=== PATIENT | male | born 1960 | race Hispanic/Latino ===

== ENCOUNTER 2017-08-21 16:08 | Inpatient (IN) | payer MEDICAID ==
[~2017-08-21] VITALS: Ht 177.8 cm; Wt 106.6 kg
[~2017-08-21 16:08] MED LIST: ACET325T51 PO; AEC81 PO; ASCO500T10 PO; ATOR20TA65 PO; AUD IH; BUDE10.2 IH; CYAN100099 PO; DIPH25 PO; DULO30CA51 PO; ETOMIDATE 2 MG/ML 10 ML VIAL IVP ONE; FOLI1TAB15 PO; FURO20TA4 PO; INSU100V12 SQ; LACT10SO9 PO; LINA5TAB PO; MULT-685 PO; OMEP40CA37 PO; ONDA4TAB4 PO; OSEL75 PO; POTA-9 PO; PREG50 PO; ROCURONIUM BROMIDE 10MG/1ML 5ML VL IV ONE; SPIR25TA PO; SUCCINYLCHOLINE CHLORIDE 20 MG/ML 10 ML VIAL IVP ONE; TYL3 PO; ZINC50TA64 PO; [UNRECOGNIZED DRUG - CODE] TP
[2017-08-21 16:32] LABS: EOSINOPHILS % (AUTO) 1.4 % (0.0-8.0); HEMATOCRIT 26.9 % (42-54); LYMPHOCYTES % (AUTO) 13.5 % (21.0-51.0); MONOCYTES % (AUTO) 10.8 % (3.0-13.0); NEUTROPHILS % (AUTO) 73.3 % (40.0-77.0); PLATELET COUNT (AUTO) 98 K/uL (130-400); RED BLOOD CELL COUNT(AUTO) 2.86 MIL/uL (4.50-6.20); RED CELL DISTRIBUTION WIDTH 16.8 % (11.0-15.5); WHITE BLOOD COUNT (AUTO) 4.2 K/uL (4.8-10.8)
[2017-08-21 16:39] LABS: CREATININE 1.9 mg/dL (0.5-1.5); POTASSIUM 5.7 mmol/L (3.5-5.1)
[2017-08-21] MEDS ORDERED: CEFTRIAXONE SODIUM 2 GM VIAL ONE (16:51)
[2017-08-21] MEDS ORDERED: ALBUMIN (HUMAN) 25% 100 ML IV SCH (17:15)
[2017-08-21 17:16] LABS: ALBUMIN 1.4 g/dL (3.5-5.0); BILIRUBIN,DIRECT 0.6 mg/dL (0.0-0.3); BILIRUBIN,TOTAL 1.2 mg/dL (0.2-1.0); TOTAL PROTEIN, SERUM 7.7 g/dL (6.0-8.3)
[2017-08-21 17:23] LABS: APPEARANCE,URINE Clear (CLEAR); BILIRUBIN,URINE Negative (NEGATIVE); COLOR,URINE Yellow (YELLOW); GLUCOSE, URINE (UA) Negative (NEGATIVE); KETONES,URINE Negative (NEGATIVE); LEUKOCYTE ESTERASE ,URINE Trace (NEGATIVE); NITRATE,URINE Negative (NEGATIVE); OCCULT BLOOD,URINE Small (NEGATIVE); PROTEIN,URINE Negative (NEGATIVE); UROBILINOGEN,URINE 0.2 mg/dL (0.2-1.0)
[2017-08-21 17:29] LABS: INR 1.32 (0.85-1.15); PARTIAL THROMBOPLASTIN TIME 33.3 SEC (26.3-35.5); PROTHROMBIN TIME 13.8 SEC (9.6-11.6)
[2017-08-21 17:47] LABS: BACTERIA,URINE None Seen /HPF (None Seen); RBC,URINE 0-1 /HPF (0-1); WBC,URINE 0-1 /HPF (0-1)
[2017-08-21] MEDS ORDERED: LACTULOSE 20 GM/30 ML UDCUP ONE (18:26)
[2017-08-21 22:05] VITALS: BP 117/67
[2017-08-22] VITALS (7 sets, daily range): BP systolic 112–122; BP diastolic 58–75
[2017-08-22] MEDS ORDERED: ZINC220C6 PO (07:42)
[2017-08-22 08:07] LABS: ALBUMIN 1.6 g/dL (3.5-5.0); BILIRUBIN,TOTAL 1.2 mg/dL (0.2-1.0); CREATININE 1.6 mg/dL (0.5-1.5); POTASSIUM 5.1 mmol/L (3.5-5.1); TOTAL PROTEIN, SERUM 7.2 g/dL (6.0-8.3)
[2017-08-22] MEDS: LACTULOSE 20 GM/30 ML UDCUP PO SCH ×3 (10:14→21:14)
[2017-08-22] MEDS ORDERED: LACTULOSE 20 GM/30 ML UDCUP PO ONE (15:09)
[2017-08-23 04:23] VITALS: BP 107/67
[2017-08-23 08:00] VITALS: BP 107/65
[2017-08-23] MEDS: LACTULOSE 20 GM/30 ML UDCUP PO SCH ×3 (08:36→21:25)
[2017-08-23 11:43] VITALS: BP 121/74
[2017-08-23 16:00] VITALS: BP 122/66
[2017-08-23 19:30] VITALS: BP 113/69
[2017-08-23] MEDS ORDERED: ACETAMINOPHEN-CODEINE 300/30MG TAB PO PRN (23:30)
[2017-08-23] MEDS ORDERED: DIPHENHYDRAMINE HCL 25 MG CAPSULE PO PRN (23:30)
[2017-08-23 23:40] VITALS: BP 116/55
[2017-08-24] MEDS: LEVOFLOXACIN 500 MG/D5W 100 ML 100 ML IV SCH ×2 (00:45→22:51)
[2017-08-24 03:45] VITALS: BP 123/67
[2017-08-24 04:21] LABS: MEAN CORPUSCULAR HEMOGLOBIN 30.9 pg (27.0-33.0); MEAN CORPUSCULAR HGB CONC 33.3 g/dL (32.0-36.0); MEAN CORPUSCULAR VOLUME 92.7 fL (79-99); PLATELET COUNT (AUTO) 89 K/uL (130-400); RED BLOOD CELL COUNT(AUTO) 2.48 MIL/uL (4.50-6.20); RED CELL DISTRIBUTION WIDTH 17.4 % (11.0-15.5)
[2017-08-24 04:31] LABS: ALBUMIN 1.5 g/dL (3.5-5.0); BILIRUBIN,TOTAL 1.5 mg/dL (0.2-1.0); CREATININE 1.6 mg/dL (0.5-1.5); POTASSIUM 4.1 mmol/L (3.5-5.1)
[2017-08-24 04:33] LABS: B-TYPE NATRIURETIC PEPTIDE 285 pg/mL (0-100)
[2017-08-24 07:00] VITALS: BP 126/68
[2017-08-24] MEDS: PANTOPRAZOLE SODIUM 40 MG TABLET.DR PO SCH (07:30)
[2017-08-24] MEDS: MULTIVITAMIN WITH MINERALS TABLET PO SCH (07:53)
[2017-08-24] MEDS: DULOXETINE HCL 30 MG CAP PO SCH (07:54)
[2017-08-24] MEDS: FOLIC ACID 1 MG TABLET PO SCH (07:54)
[2017-08-24] MEDS: ZINC SULFATE 220 CAPSULE PO SCH (07:54)
[2017-08-24] MEDS: POTASSIUM CHLORIDE 10 MEQ/TAB.SA PO SCH (07:54)
[2017-08-24] MEDS: CYANOCOBALAMIN (VITAMIN B-12) 1,000 MCG TABLET PO SCH (07:54)
[2017-08-24] MEDS: SUB PER P&T FOR ASTHMA OR COPD RECOMMENDATION IH SCH (07:55)
[2017-08-24] MEDS: FUROSEMIDE 20 MG TABLET PO SCH ×2 (09:46→21:06)
[2017-08-24] MEDS: LACTULOSE 20 GM/30 ML UDCUP PO SCH ×3 (09:46→21:05)
[2017-08-24 11:08] VITALS: BP 127/72
[2017-08-24 15:00] VITALS: BP 122/71
[2017-08-24 19:00] VITALS: BP 101/64
[2017-08-24] MEDS: ATORVASTATIN CALCIUM 20 MG TABLET PO SCH (21:06)
[2017-08-24 23:51] VITALS: BP 109/62
[2017-08-25] VITALS (12 sets, daily range): BP systolic 88–114; BP diastolic 40–58
[2017-08-25] MEDS: ALBUTEROL SULFATE 0.083% 2.5 MG/3 ML INH IH PRN ×2 (04:51→13:39)
[2017-08-25 05:20] LABS: ALBUMIN 1.5 g/dL (3.5-5.0); BILIRUBIN,TOTAL 2.5 mg/dL (0.2-1.0); CREATININE 1.7 mg/dL (0.5-1.5); POTASSIUM 3.8 mmol/L (3.5-5.1); TOTAL PROTEIN, SERUM 7.1 g/dL (6.0-8.3)
[2017-08-25] MEDS ORDERED: TRYPSIN/BALSAM PERU/CASTOR OIL OINT 60GM TUBE TP SCH (09:00)
[2017-08-25] MEDS: SUB PER P&T FOR ASTHMA OR COPD RECOMMENDATION IH SCH (09:00)
[2017-08-25] MEDS ORDERED: NEOMY SULF/BACITRAC ZN/POLY OINT 30GM TUBE TP SCH (09:00)
[2017-08-25] MEDS: FOLIC ACID 1 MG TABLET PO SCH (10:06)
[2017-08-25] MEDS: CYANOCOBALAMIN (VITAMIN B-12) 1,000 MCG TABLET PO SCH (10:06)
[2017-08-25] MEDS: ZINC SULFATE 220 CAPSULE PO SCH (10:06)
[2017-08-25] MEDS: PANTOPRAZOLE SODIUM 40 MG TABLET.DR PO SCH (10:07)
[2017-08-25] MEDS: MULTIVITAMIN WITH MINERALS TABLET PO SCH (10:08)
[2017-08-25] MEDS: FUROSEMIDE 20 MG TABLET PO SCH (10:08)
[2017-08-25] MEDS: DULOXETINE HCL 30 MG CAP PO SCH (10:08)
[2017-08-25] MEDS: POTASSIUM CHLORIDE 10 MEQ/TAB.SA PO SCH (10:11)
[2017-08-25] MEDS: LACTULOSE 20 GM/30 ML UDCUP PO SCH ×3 (10:11→21:53)
[2017-08-25] MEDS: ZOSYN 3.375GM+NS 50ML 50 ML IV SCH ×2 (13:50→21:54)
[2017-08-25 16:42] LABS: ABG BASE EXCESS -5.1 mmol/L (-2.0-3.0); ABG HCO3 18.2 mmol/L (21.0-28.0); ABG OXYGEN SATURATION 87.6 % (95.0-99.0); ABG PCO2 28 mmHg (35-48)
[2017-08-25] MEDS ORDERED: FUROSEMIDE 10 MG/ML 4ML VIAL IV ONE (19:30)
[2017-08-25] MEDS: FUROSEMIDE 10 MG/ML 2ML VIAL IV SCH (21:00)
[2017-08-25] MEDS ORDERED: SODIUM CHLORIDE 0.9% 500ML 500 ML IV ONE (21:41)
[2017-08-25] MEDS: LEVOFLOXACIN 500 MG/D5W 100 ML 100 ML IV SCH (21:55)
[2017-08-25] MEDS: ATORVASTATIN CALCIUM 20 MG TABLET PO SCH (21:55)
[2017-08-26] VITALS (29 sets, daily range): BP systolic 76–150; BP diastolic 37–72
[2017-08-26] MEDS: ZOSYN 3.375GM+NS 50ML 50 ML IV SCH ×3 (05:44→20:37)
[2017-08-26 08:41] LABS: ABG BASE EXCESS -6.1 mmol/L (-2.0-3.0); ABG HCO3 18.6 mmol/L (21.0-28.0); ABG OXYGEN SATURATION 95.6 % (95.0-99.0); ABG PCO2 35 mmHg (35-48)
[2017-08-26 08:45] LABS: CREATININE 2.2 mg/dL (0.5-1.5); POTASSIUM 4.1 mmol/L (3.5-5.1)
[2017-08-26 08:47] LABS: HEMATOCRIT 23.5 % (42-54); MEAN CORPUSCULAR HEMOGLOBIN 31.1 pg (27.0-33.0); MEAN CORPUSCULAR HGB CONC 33.1 g/dL (32.0-36.0); PLATELET COUNT (AUTO) 62 K/uL (130-400); RED CELL DISTRIBUTION WIDTH 17.8 % (11.0-15.5); WHITE BLOOD COUNT (AUTO) 7.6 K/uL (4.8-10.8)
[2017-08-26 09:09] LABS: BAND NEUTROPHILS % (MANUAL) 5 % (0-2); LYMPHOCYTES % (MANUAL) 2 % (22-44); MAN.DIFF COMMENT-IMPRESSION MANUAL DIFFERENTIAL; SEGMENTED NEUTROPHILS % 93 % (40-70)
[2017-08-26] MEDS: POTASSIUM CHLORIDE 10 MEQ/TAB.SA PO SCH (09:21)
[2017-08-26] MEDS: DULOXETINE HCL 30 MG CAP PO SCH (09:21)
[2017-08-26] MEDS: FOLIC ACID 1 MG TABLET PO SCH (09:21)
[2017-08-26] MEDS: MULTIVITAMIN WITH MINERALS TABLET PO SCH (09:22)
[2017-08-26] MEDS: ZINC SULFATE 220 CAPSULE PO SCH (09:22)
[2017-08-26] MEDS: CYANOCOBALAMIN (VITAMIN B-12) 1,000 MCG TABLET PO SCH (09:22)
[2017-08-26] MEDS: FUROSEMIDE 10 MG/ML 2ML VIAL IV SCH ×2 (09:22→20:37)
[2017-08-26] MEDS: LACTULOSE 20 GM/30 ML UDCUP PO SCH ×3 (09:22→20:37)
[2017-08-26] MEDS: PANTOPRAZOLE SODIUM 40 MG TABLET.DR PO SCH (09:25)
[2017-08-26] MEDS: ALBUTEROL SULFATE 0.083% 2.5 MG/3 ML INH IH SCH ×2 (11:03→17:51)
[2017-08-26] MEDS ORDERED: MIDAZOLAM 100MG-0.9% NS 100ML 100 ML IV PRN (12:30)
[2017-08-26] MEDS ORDERED: FENTANYL 2500MCG+NS 250ML 250 ML IV PRN (12:30)
[2017-08-26] MEDS ORDERED: FENTANYL 2500MCG+NS 250ML 250 ML IV ONE (12:41)
[2017-08-26] MEDS: NOREPINEPHRINE 4MG/NS 250ML 250 ML IV SCH (14:24)
[2017-08-26 14:53] LABS: ABG BASE EXCESS -13.6 mmol/L (-2.0-3.0); ABG HCO3 16.8 mmol/L (21.0-28.0); ABG OXYGEN SATURATION 97.5 % (95.0-99.0); ABG PCO2 57 mmHg (35-48)
[2017-08-26] MEDS ORDERED: SODIUM BICARB 8.4% 50ML SYRINGE IVP SCH (15:15)
[2017-08-26] MEDS ORDERED: SODIUM BICARB 50MEQ 50ML VIAL IV SCH (15:45)
[2017-08-26] MEDS: BUDESONIDE 0.5 MG/2 ML INH IH SCH (17:51)
[2017-08-26 18:09] LABS: ABG BASE EXCESS -8.6 mmol/L (-2.0-3.0); ABG HCO3 18.3 mmol/L (21.0-28.0); ABG OXYGEN SATURATION 96.3 % (95.0-99.0); ABG PCO2 43 mmHg (35-48)
[2017-08-26] MEDS: ATORVASTATIN CALCIUM 20 MG TABLET PO SCH (20:37)
[2017-08-26] MEDS: PROPOFOL 1000 MG/100 ML IV PRN (23:59)
[2017-08-27] VITALS (34 sets, daily range): BP systolic 82–116; BP diastolic 27–76
[2017-08-27] MEDS: ALBUTEROL SULFATE 0.083% 2.5 MG/3 ML INH IH SCH ×5 (01:38→23:13)
[2017-08-27] MEDS: PROPOFOL 1000 MG/100 ML IV PRN ×5 (04:22→22:35)
[2017-08-27 04:43] LABS: HEMATOCRIT 25.5 % (42-54); MEAN CORPUSCULAR HEMOGLOBIN 31.6 pg (27.0-33.0); MEAN CORPUSCULAR HGB CONC 32.9 g/dL (32.0-36.0); MEAN CORPUSCULAR VOLUME 96.1 fL (79-99); PLATELET COUNT (AUTO) 95 K/uL (130-400); RED BLOOD CELL COUNT(AUTO) 2.65 MIL/uL (4.50-6.20); RED CELL DISTRIBUTION WIDTH 18.3 % (11.0-15.5); WHITE BLOOD COUNT (AUTO) 11.1 K/uL (4.8-10.8)
[2017-08-27 04:44] LABS: CREATININE 2.9 mg/dL (0.5-1.5); POTASSIUM 4.2 mmol/L (3.5-5.1)
[2017-08-27 04:52] LABS: BAND NEUTROPHILS % (MANUAL) 25 % (0-2); LYMPHOCYTES % (MANUAL) 4 % (22-44); MAN.DIFF COMMENT-IMPRESSION MANUAL DIFFERENTIAL; MONOCYTES % (MANUAL) 1 % (2-9); PLATELET MORPHOLOGY COMMENT DECREASED; SEGMENTED NEUTROPHILS % 70 % (40-70)
[2017-08-27 05:11] LABS: ABG BASE EXCESS -7.9 mmol/L (-2.0-3.0); ABG OXYGEN SATURATION 97.9 % (95.0-99.0); ABG PCO2 38 mmHg (35-48)
[2017-08-27] MEDS: ZOSYN 3.375GM+NS 50ML 50 ML IV SCH ×3 (05:16→21:08)
[2017-08-27] MEDS: BUDESONIDE 0.5 MG/2 ML INH IH SCH ×2 (06:01→19:06)
[2017-08-27] MEDS: PANTOPRAZOLE SODIUM 40 MG TABLET.DR PO SCH (06:27)
[2017-08-27] MEDS: NOREPINEPHRINE 4MG/NS 250ML 250 ML IV SCH ×3 (07:20→21:10)
[2017-08-27] MEDS: FOLIC ACID 1 MG TABLET PO SCH (08:46)
[2017-08-27] MEDS: MULTIVITAMIN WITH MINERALS TABLET PO SCH (08:46)
[2017-08-27] MEDS: FUROSEMIDE 10 MG/ML 2ML VIAL IV SCH ×2 (08:46→21:08)
[2017-08-27] MEDS: LACTULOSE 20 GM/30 ML UDCUP PO SCH ×3 (08:46→21:08)
[2017-08-27] MEDS: DULOXETINE HCL 30 MG CAP PO SCH (08:46)
[2017-08-27] MEDS: ZINC SULFATE 220 CAPSULE PO SCH (08:47)
[2017-08-27] MEDS: POTASSIUM CHLORIDE 10 MEQ/TAB.SA PO SCH (08:47)
[2017-08-27] MEDS: CYANOCOBALAMIN (VITAMIN B-12) 1,000 MCG TABLET PO SCH (08:47)
[2017-08-27] MEDS: TRYPSIN/BALSAM PERU/CASTOR OIL OINT 60GM TUBE TP SCH (08:48)
[2017-08-27] MEDS: NEOMY SULF/BACITRAC ZN/POLY OINT 30GM TUBE TP SCH (08:48)
[2017-08-27] MEDS ORDERED: LEVOFLOXACIN 500 MG/D5W 100 ML 100 ML IV SCH (21:00)
[2017-08-27] MEDS: ATORVASTATIN CALCIUM 20 MG TABLET PO SCH (21:08)
[2017-08-28] VITALS (20 sets, daily range): BP systolic 74–130; BP diastolic 30–64
[2017-08-28] MEDS: NOREPINEPHRINE 4MG/NS 250ML 250 ML IV SCH ×2 (02:10→04:40)
[2017-08-28] MEDS: PROPOFOL 1000 MG/100 ML IV PRN ×2 (04:36→09:54)
[2017-08-28 04:47] LABS: BASOPHILS % (AUTO) 0.1 % (0.0-5.0); EOSINOPHILS % (AUTO) 2.3 % (0.0-8.0); HEMATOCRIT 25.4 % (42-54); MEAN CORPUSCULAR HEMOGLOBIN 31.1 pg (27.0-33.0); MEAN CORPUSCULAR HGB CONC 32.5 g/dL (32.0-36.0); MEAN CORPUSCULAR VOLUME 95.7 fL (79-99); MONOCYTES % (AUTO) 3.3 % (3.0-13.0); NEUTROPHILS % (AUTO) 91.3 % (40.0-77.0); NUCLEATED RED BLOOD CELLS 0.1 % (0.0-0.19); PLATELET COUNT (AUTO) 87 K/uL (130-400); RED BLOOD CELL COUNT(AUTO) 2.65 MIL/uL (4.50-6.20); RED CELL DISTRIBUTION WIDTH 18.6 % (11.0-15.5); WHITE BLOOD COUNT (AUTO) 8.2 K/uL (4.8-10.8)
[2017-08-28 05:09] LABS: ALBUMIN 1.4 g/dL (3.5-5.0); BILIRUBIN,TOTAL 3.7 mg/dL (0.2-1.0); CREATININE 3.6 mg/dL (0.5-1.5); POTASSIUM 3.9 mmol/L (3.5-5.1); TOTAL PROTEIN, SERUM 7.1 g/dL (6.0-8.3)
[2017-08-28] MEDS: ZOSYN 3.375GM+NS 50ML 50 ML IV SCH (05:28)
[2017-08-28] MEDS ORDERED: DEXTROSE 50%-WATER 50 ML DISP.SYRIN IV ONE (05:57)
[2017-08-28] MEDS: PANTOPRAZOLE SODIUM 40 MG TABLET.DR PO SCH (05:59)
[2017-08-28] MEDS: ALBUTEROL SULFATE 0.083% 2.5 MG/3 ML INH IH SCH ×2 (07:10→11:52)
[2017-08-28] MEDS: BUDESONIDE 0.5 MG/2 ML INH IH SCH (07:10)
[2017-08-28] MEDS ORDERED: PHARMACY COMMUNICATION MISC SCH (08:00)
[2017-08-28] MEDS: NOREPINEPHRINE BITARTRATE 8 MG in DEXTROSE 5%-WATER 250 ML IV SCH ×2 (08:03→13:57)
[2017-08-28] MEDS: LACTULOSE 20 GM/30 ML UDCUP PO SCH (09:00)
[2017-08-28] MEDS: DULOXETINE HCL 30 MG CAP PO SCH (09:00)
[2017-08-28] MEDS: NEOMY SULF/BACITRAC ZN/POLY OINT 30GM TUBE TP SCH (09:01)
[2017-08-28] MEDS: FUROSEMIDE 10 MG/ML 2ML VIAL IV SCH (09:01)
[2017-08-28] MEDS: CYANOCOBALAMIN (VITAMIN B-12) 1,000 MCG TABLET PO SCH (09:01)
[2017-08-28] MEDS: TRYPSIN/BALSAM PERU/CASTOR OIL OINT 60GM TUBE TP SCH (09:01)
[2017-08-28] MEDS: FOLIC ACID 1 MG TABLET PO SCH (09:01)
[2017-08-28] MEDS: ZINC SULFATE 220 CAPSULE PO SCH (09:01)
[2017-08-28] MEDS ORDERED: MULTIVITS W-MIN/FERROUS GLUC 237 ML BOTTLE PO SCH (10:00)
[2017-08-28] MEDS ORDERED: PHENYLEPHRINE HCL 50 MG in SODIUM CHLORIDE 0.9% 250 ML IV SCH (10:00)
[2017-08-28] MEDS ORDERED: POTASSIUM CHLORIDE 10% ELIXIR 20 MEQ/15 ML UDCUP PO SCH (10:00)
[2017-08-28] MEDS ORDERED: WATER IV PRN (12:30)
[2017-08-28] MEDS ORDERED: DEXTROSE 5% IV PRN (12:30)
[2017-08-28] MEDS ORDERED: VASOPRESSIN IV PRN (12:30)
[2017-08-28] MEDS ORDERED: VASOPRESSIN 125 UNITS in SODIUM CHLORIDE 0.9% 250 ML IV PRN (12:43)
[2017-08-28] MEDS ORDERED: MIDAZOLAM 100MG-0.9% NS 100ML 100 ML IV PRN (12:45)
[2017-08-28] MEDS ORDERED: FENTANYL 2500MCG+NS 250ML 250 ML IV PRN (12:45)
[2017-08-29] MEDS ORDERED: POTASSIUM CHLORIDE 10% ELIXIR 20 MEQ/15 ML UDCUP PO SCH (09:00)
[2017-08-29] MEDS ORDERED: MULTIVITS W-MIN/FERROUS GLUC 237 ML BOTTLE PO SCH (09:00)
== END 2017-08-28 16:56 | disposition expired | DRG 720 ==
LOC: EDH 16:08 → EDHIP 16:09 → 3CH 21:19 → 2CH 08-25 15:05
PROVIDERS: ADMIT Internal Medicine; ATTEND Internal Medicine
PROC: 5A09357 Assistance with Respiratory Ventilation, Less than 24 Consecutive Hours, Continuous Positive Airway Pressure (ICD-10-PCS; 2017-08-25)
PROC: 5A1945Z Respiratory Ventilation, 24-96 Consecutive Hours (ICD-10-PCS; principal; 2017-08-26)
PROC: 0BH17EZ Insertion of Endotracheal Airway into Trachea, Via Natural or Artificial Opening (ICD-10-PCS; 2017-08-26)
PROC: 02HV33Z Insertion of Infusion Device into Superior Vena Cava, Percutaneous Approach (ICD-10-PCS; 2017-08-27)
PROC: B548ZZA Ultrasonography of Superior Vena Cava, Guidance (ICD-10-PCS; 2017-08-27)
DX: A41.9 Sepsis, unspecified organism (principal); J96.01 Acute respiratory failure with hypoxia; K76.7 Hepatorenal syndrome; N17.0 Acute kidney failure with tubular necrosis; E43 Unspecified severe protein-calorie malnutrition; R65.21 Severe sepsis with septic shock; G93.40 Encephalopathy, unspecified; B49 Unspecified mycosis; J18.9 Pneumonia, unspecified organism; D69.59 Other secondary thrombocytopenia; E11.22 Type 2 diabetes mellitus with diabetic chronic kidney disease; L03.116 Cellulitis of left lower limb; F10.20 Alcohol dependence, uncomplicated; Y90.9 Presence of alcohol in blood, level not specified; K70.31 Alcoholic cirrhosis of liver with ascites; M19.90 Unspecified osteoarthritis, unspecified site; M86.9 Osteomyelitis, unspecified; Z53.20 Procedure and treatment not carried out because of patient's decision for unspecified reasons; E11.622 Type 2 diabetes mellitus with other skin ulcer; N17.9 Acute kidney failure, unspecified; E11.69 Type 2 diabetes mellitus with other specified complication; N18.9 Chronic kidney disease, unspecified; K21.9 Gastro-esophageal reflux disease without esophagitis; E78.5 Hyperlipidemia, unspecified; K70.40 Alcoholic hepatic failure without coma; L97.329 Non-pressure chronic ulcer of left ankle with unspecified severity; I12.9 Hypertensive chronic kidney disease with stage 1 through stage 4 chronic kidney disease, or unspecified chronic kidney disease; D64.9 Anemia, unspecified; E87.2 Acidosis; Z87.11 Personal history of peptic ulcer disease; Z68.33 Body mass index [BMI] 33.0-33.9, adult; Z72.0 Tobacco use
CPT/HCPCS: 36415; 36600; 70450; 71045; 71250; 80048; 80053; 80076; 81001; 82140; 82330; 82435; 82803; 82947; 82948; 83605; 83690; 83880; 84132; 84295; 84484; 85018; 85025; 85027; 85610; 85730; 87040; 87804; 92610; 93005; 93306; 94002; 94003; 94640; 94660; 94664; 99291; C1751; J0330; J0696; J1940; J1956; J2370; J2543; J2704; J3010; J3490; J7030; J7040; J7060; J7070; P9046